=== PATIENT | female | born 1950 | race Hispanic/Latino ===

== ENCOUNTER 2016-07-15 14:35 | Outpatient (CLI) | payer BC ==
--- NOTE | 2016-07-15 15:32 | Mammography Report ---
BILATERAL MAMMOGRAM: FINDINGS: The breasts are almost entirely fat (<25% glandular). No mass, distortion, suspicious calcification, or skin change is seen. CAD was utilized. IMPRESSION: Negative mammogram. There is no mammographic evidence of malignancy. RECOMMENDATION: Follow-up per ACS guidelines. BI-RADS CATEGORY: 1 = Negative ACR BI-RADS MAMMOGRAPHIC CODES: 0 = Needs additional imaging evaluation; 1 = Negative; 2 = Benign; 3 = Probably benign; 4 = Suspicious; 5 = Malignant; 6 = Known biopsy-proven malignancy COMMENT: 1. Dense breast tissue, i.e., adenosis, fibrocystic changes, etc., may obscure an underlying neoplasm. 2. Approximately 10% of cancers are not detected with mammography. 3. A negative mammography report should not delay biopsy if a clinically suspicious mass is present. COMMENT: Patient follow-up letters are generated in [employer].
== END 2016-07-15 14:36 | disposition home or self-care (01) ==
LOC: SPVWC 14:35
PROVIDERS: ATTEND Internal Medicine
DX: Z12.31 Encounter for screening mammogram for malignant neoplasm of breast (principal)
CPT/HCPCS: 77067; G0202

== ENCOUNTER 2016-09-02 09:10 | Outpatient (CLI) | payer BC ==
--- NOTE | 2016-09-02 10:06 | Ultrasound Report ---
Limited abdominal ultrasound: Elevated liver enzymes. Images of the liver raise suspicion of mild increased echogenicity. No focal findings. Normal liver contour and size. The gallbladder has been surgically removed. The diameter of the CBD is 5 mm. Images of the pancreas are unremarkable as are images of the right kidney which measures 10.9 cm in length. The transverse diameter of the proximal abdominal aorta is 2.1 cm and the mid aorta is 1.5 cm. Impressions: The findings raise the possibility of mild steatosis of the liver.
== END 2016-09-02 09:11 | disposition home or self-care (01) ==
LOC: SPVWC 09:10
PROVIDERS: ATTEND Internal Medicine
DX: R94.5 Abnormal results of liver function studies (principal); Z90.49 Acquired absence of other specified parts of digestive tract
CPT/HCPCS: 76705

== ENCOUNTER 2016-10-20 08:24 | Outpatient (CLI) | payer BC ==
--- NOTE | 2016-10-20 10:27 | Ultrasound Report ---
Limited abdominal ultrasound: Elevated liver enzyme studies. Transabdominal imaging demonstrates a somewhat coarse liver pattern with no focal findings. The liver has a normal contour and size. The body and head of the pancreas are visualized and appear unremarkable. The tail was not well visualized. The gallbladder has been surgically removed. The CBD diameter is 5 mm. The right renal length is 10.9 cm and the kidney is echogenically unremarkable. The transverse diameter of the proximal abdominal aorta is 2 cm and the mid aorta is 1.8 cm. Impressions: The heterogeneous liver may be related to fatty infiltration. No focal findings.
== END 2016-10-20 08:25 | disposition home or self-care (01) ==
LOC: SPVWC 08:24
PROVIDERS: ATTEND Internal Medicine Rheumatology
DX: R94.5 Abnormal results of liver function studies (principal); Z90.49 Acquired absence of other specified parts of digestive tract
CPT/HCPCS: 76705

== ENCOUNTER 2017-05-18 08:30 | Inpatient (IN) | payer BC, MEDICARE ==
--- NOTE | 2017-05-18 09:07 | Anesthesia Consultation ---
Anesthesia Consult and Med Hx Date of service: 05/18/17 - Airway Anesthetic Teeth Evaluation: Good ROM Head & Neck: Adequate Mental/Hyoid Distance: Adequate Mallampati Class: Class I Intubation Access Assessment: Good - Pulmonary Exam CTA: Yes - Cardiac Exam Cardiac Exam: RRR - Pre-Operative Health Status ASA Pre-Surgery Classification: ASA2 Proposed Anesthetic Plan: General - Pulmonary Hx Smoking: Yes (STOPPED X 35 YRS , 2PPD X 10-15 YRS) Hx Asthma: Yes (INHALERS PRN) Hx Sleep Apnea: No (ADAM PRE SCREEN HIGH RISK.) - Cardiovascular System Hx Hypertension: Yes (X 8 MONTHS) - Hematic Hx Anemia: Yes (NOT RECENT) - Other Systems Hx Alcohol Use: (2-3 DRINKS PER DAY) Hx Cancer: No
[2017-05-18] MEDS ORDERED: TRANSDERM-SCOP TD NR (10:00)
[2017-05-18] MEDS ORDERED: REGLAN IV NR (10:00)
[2017-05-18] MEDS ORDERED: ZOFRAN IV NR (10:00)
[2017-05-18] MEDS ORDERED: VERSED IV NR (10:00)
[2017-05-18] MEDS ORDERED: DECADRON IV ONE (11:00)
[2017-05-25] MEDS ORDERED: ANCEF/STERILE WATER 2 GM/20 ML IV NR (00:01)
[2017-05-25] MEDS ORDERED: NACL ONE ×2 (06:53→12:23)
[2017-05-25] MEDS ORDERED: TRANEXAMIC ACID ONE (06:53)
[2017-05-25] MEDS ORDERED: MARCAINE 0.25% INFILTRATI ONE ×2 (06:53→13:10)
[2017-05-25] MEDS ORDERED: TORADOL ONE (06:53)
[2017-05-25] MEDS ORDERED: XYLOCAINE 1%/ EPI 1:100,000 INFILTRATI ONE (06:54)
[2017-05-25] MEDS ORDERED: POLYMYXIN B SULFATE IV ONE ×2 (06:54→12:45)
[2017-05-25] MEDS ORDERED: MORPHINE ONE (06:54)
[2017-05-25] MEDS ORDERED: CLORPACTIN WCS-90 IR ONE ×3 (06:55→12:15)
[2017-05-25] MEDS ORDERED: BACITRACIN ONE ×2 (06:55→10:05)
[2017-05-25] MEDS: NACL 0.9% 1000 ML 1,000 ML IV SCH ×2 (09:15→11:17)
[2017-05-25] MEDS ORDERED: DECADRON IV ONE (10:00)
[2017-05-25] MEDS ORDERED: MARCAINE 0.5% 30 ML INFILTRATI ONE (10:02)
[2017-05-25] MEDS ORDERED: VERSED ONE (10:02)
[2017-05-25] MEDS ORDERED: PEPCID IV NR (10:04)
[2017-05-25] MEDS: TRANSDERM-SCOP TD NR ×2 (10:05→11:18)
[2017-05-25] MEDS ORDERED: DIPRIVAN 10 MG/ML IV ONE (10:24)
[2017-05-25] MEDS ORDERED: XYLOCAINE MPF 2% ONE (10:26)
[2017-05-25] MEDS ORDERED: DILAUDID ONE (10:26)
[2017-05-25] MEDS ORDERED: TRANEXAMIC ACID IV ONE (10:50)
[2017-05-25] MEDS ORDERED: NACL 0.9% IV ONE (11:00)
[2017-05-25] MEDS ORDERED: NACL 0.9% 250ML 250 ML ONE ×2 (11:18→12:03)
[2017-05-25] MEDS ORDERED: VANCOMYCIN VIAL ONE (12:01)
[2017-05-25] MEDS ORDERED: SUBLIMAZE ONE (12:09)
[2017-05-25] MEDS ORDERED: NACL 0.9% 500 ML 500 ML ONE (12:31)
[2017-05-25] MEDS ORDERED: BACITRACIN IR ONE (12:45)
[2017-05-25] MEDS ORDERED: NACL INFILTRATI ONE (13:10)
[2017-05-25] MEDS ORDERED: TORADOL PO ONE (13:10)
[2017-05-25] MEDS ORDERED: MORPHINE IM ONE (13:10)
[2017-05-25] MEDS ORDERED: PHENERGAN PR PRN (13:57)
[2017-05-25] MEDS ORDERED: ZOFRAN IV PRN (13:57)
[2017-05-25] MEDS ORDERED: SODIUM CHLORIDE FLUSH SYRINGE 10 ML IV NR (14:00)
[2017-05-25] MEDS ORDERED: NON-FORMULARY (Cetirizine Hcl [Zyrtec] 10 MG) PO PRN (14:01)
[2017-05-25] MEDS ORDERED: NON-FORMULARY (Albuterol Sulfate [Proair Respiclick] 90 MCG) IH PRN (14:01)
[2017-05-25] MEDS ORDERED: FLONASE NS PRN (14:01)
[2017-05-25] MEDS ORDERED: NON-FORMULARY (Budesonide/Formoterol Fumarate [Symbicort 160-4.5 Mcg Inhaler] 2 PUFF) INHALATION PRN (14:01)
[2017-05-25] MEDS ORDERED: ROBINUL ONE (14:26)
[2017-05-25] MEDS ORDERED: NACL 0.9% 1000 ML 1,000 ML ONE (14:26)
[2017-05-25] MEDS ORDERED: ZOFRAN ONE (14:26)
[2017-05-25] MEDS ORDERED: XYLOCAINE CARDIAC IV ONE (14:26)
[2017-05-25] MEDS ORDERED: NEO SYNEPHRINE/NS Syringe(OR USE) IV ONE (14:30)
[2017-05-25] MEDS ORDERED: CLARITIN PO PRN (14:34)
[2017-05-25] MEDS ORDERED: VITAMIN B-12 IM SCH (16:00)
--- NOTE | 2017-05-25 19:53 | XRay Report ---
FINAL REPORT PROCEDURE: XR KNEE 1-2V LT TECHNIQUE: Left knee radiographs, AP and lateral views. HISTORY: postop COMPARISON: No prior studies are available for comparison. FINDINGS: Total knee prosthesis in place. Prosthetic components are tightly applied to bone. No fractures are seen. Fluid and gas visualized in the suprapatellar bursa consistent with recent surgery. There is artifact from bandages overlying the knee. IMPRESSION: Postoperative changes as described above related to total knee prosthesis placement. Prosthetic components appear tightly applied to bone.
[2017-05-25] MEDS: PULMICORT IH SCH (20:58)
[2017-05-25] MEDS: BROVANA NEBU IH SCH (20:58)
[2017-05-25] MEDS ORDERED: ceFAZolin 2 GM in NACL 0.9% 20 ML IV SCH (22:00)
[2017-05-25] MEDS ORDERED: ceFAZolin 2 GM in NACL 0.9% 100 ML IV SCH (22:00)
[2017-05-25] MEDS: ASPIRIN PO SCH (22:15)
[2017-05-25] MEDS: MORPHINE IV PRN (22:15)
[2017-05-25] MEDS: BACTRIM DS PO SCH (22:15)
[2017-05-25] MEDS: ceFAZolin 2 GM in NACL 0.9% 20 ML IV SCH (22:20)
[2017-05-25] MEDS: TORADOL IV SCH (22:40)
[2017-05-25] MEDS ORDERED: VANCOMYCIN/0.45 NS 1 GM/250 ML 1 GM/250 ML BAG IV ONE (23:00)
[2017-05-25] MEDS ORDERED: VANCOMYCIN/NS 1 GM/250 ML 1 GM/250 ML BAG IV SCH (23:00)
[2017-05-26] MEDS: AZULFIDINE PO SCH ×3 (00:39→21:41)
--- NOTE | 2017-05-26 00:47 | Operative Report ---
SURGEON: Javi Hernandez MD VENDING MACHINE COLLECTOR: Abigail operative tech and ____ operative tech. PREOPERATIVE DIAGNOSIS: Severe advanced osteoarthritis, left knee joint. POSTOPERATIVE DIAGNOSIS: Severe osteoarthritis of the left knee joint, tibiofemoral joint. PROCEDURES PERFORMED: 1. Left total knee replacement. 2. Partial synovectomy, left knee joint. COMPLICATIONS: None. BLOOD LOSS: Minimal. BRIEF HISTORY: The patient has painful arthritic left knee, failed conservative treatment, opted to undergo surgical intervention. Risk, benefit discussed, informed consent obtained, brought to the hospital for the above procedure. DETAILS OF THE OPERATIVE REPORT: The patient was taken to the operating, smooth and general endotracheal anesthesia, all the bony prominences were carefully padded, placed supine on the operating table. Thigh tourniquet was placed. Left knee, left lower extremity prepped and draped in sterile fashion. Leg elevated, tourniquet inflated to 300 mmHg. The patient was given 2 grams Ancef half an hour before the procedure along with a gram of TXA 10 minutes before the incision. Longitudinal incision made over anterior aspect of the knee, exposing extensive mechanism. Arthrotomy was performed. Patella displaced laterally. Gross finding of severe advanced degenerative arthritis of the tibiofemoral joint. Subperiosteal dissection was continued around the proximal medial tibia and necessary soft tissue release was performed to correct the fixed angular deformity. Drill was used to open the femoral canal. The subperiosteal dissection was continued around the proximal medial tibia. Necessary soft tissue release was performed to correct the fixed angular deformity. The patient had my knee protocol in patient's specific instrumentation and block made based on the CT scan and that block was placed on the femur and had a great fit. This was fixed. Hence, on the distal femur, an oblique pin was used to get a better purchase. Once this was done, the distal cut was done in about 5 degree valgus angle as planned preoperatively based on the patient's CT scan. A good cut was achieved about 10 mm on the medial side. The drills were made through the patient's specific block to darryl her external rotation, which is in line with the epicondyles. The external rotation pins were placed. The block was removed. Following that, the 4-in-1 cutting block was placed on the femoral side. Anterior and posterior cuts were made including the chamfer cuts. Extramedullary tibial cutting guide was then placed, proximal tibia resected perpendicular long axis of tibia, minimum bone resection was performed about 6-7 on the proximal lateral side. Following this, there was a laminar biosolids management technician was placed between femur and tibia. Arthritic ACL and PCL ligaments were removed. Medial and lateral meniscectomy performed. Gap balancing was achieved by doing appropriate release of the medial side. Significant osteophytes and the posterior aspect of the femur with tight capsule was released as well. Once the osteophytes and the posterior capsule were released and the ligament of the medial side was released, we achieved a good balancing on the flexion and extension and medially and laterally with the spacer block. With a 10 spacer we had great stability, full extension, full flexion, stable throughout range of motion. Stable equal flexion, extension, and medial laterally gaps on flexion and extension as well. Tibia was then prepared by tibial reaming and broach system by placing the tibial tray in proper position, proper external rotation. Femur was then placed and trialing was then performed with 10 poly, we had great stability, full extension, full flexion, stable throughout range of motion. Patella was fairly pristine. Full thickness articular cartilage of the patella was preserved other than mild minimal osteophytes. We decided to leave the patella ____ resurfaces as they were fairly well preserved cartilage. Patella tracked central throughout range of motion. Femur was then prepared for the trochlear cut through the Medacta cutting block. Trochlear recess cut was then performed. Trialing was done, we had great stability, full range of motion. Patella tracked central, stable throughout range of motion, full extension, full flexion. Trial components were removed, thoroughly washed the knee area with antibiotic-soaked normal saline, followed by normal saline. Thorough washing was performed in the knee with antibiotic-soaked normal saline, bacitracin, polymyxin, also washing was performed with 500 mL bag of Clorpactin irrigation with normal saline. Then we had thorough washing with regular, normal saline about a liter bag. The bone surfaces were cleaned and dried, cementing of the knee was performed. Tibia was cemented first set in proper position, proper external rotation, impacted in place. Excess cement was removed. Femur was then cemented in proper position, proper external rotation and packed in place. Excess cement was removed. Trial liner was then placed once the cement was hardened, relative tibial articulating surface was implanted and a knee moved through range of motion and found to be extremely stable. Pain cocktail injection was injected into the periarticular tissue around the knee. Tourniquet released. Hemostasis achieved with electrocautery. No active bleeder as such. Arthrotomy was closed with #2 Quill sutures, subcutaneous tissue was closed with 0 and 2-0 Vicryl interrupted sutures. Skin was closed with Monocryl. Aquacel dressing done. Asael wrap applied. The patient tolerated the procedure well, shifted to recovery room in stable condition. Sponge and needle count was correct. IMPLANTS USED: Medacta sphere primary knee femoral component size 3 ____ type sphere, tibial tray size 3, left side fixed, asymmetric baseplate cemented, poly ____ size 3, 10 mm high-flex type. JOB# [id number] JOSE/KASHIF
[2017-05-26] MEDS: PERCOCET 5/325 PO PRN ×2 (02:20→14:14)
[2017-05-26] MEDS: TORADOL IV SCH ×3 (04:11→21:39)
[2017-05-26 05:23] LABS: Hematocrit 32.4 % (30.3-42.9); Hemoglobin 11.3 gm/dl (10.1-14.3)
[2017-05-26 05:31] LABS: INR 1.03 (0.87-1.13)
[2017-05-26 05:40] LABS: BUN/Creatinine Ratio 14; Blood Urea Nitrogen 10 mg/dL (7-17); Calcium 7.7 mg/dL (8.4-10.2); Hemolysis Index 3
[2017-05-26] MEDS: ceFAZolin 2 GM in NACL 0.9% 20 ML IV SCH ×2 (05:54→17:39)
[2017-05-26] MEDS: NACL 0.9% 1000 ML 1,000 ML IV SCH (05:59)
[2017-05-26] MEDS ORDERED: PULMICORT IH ONE ×2 (08:03→20:24)
[2017-05-26] MEDS: MORPHINE IV PRN ×2 (09:42→17:38)
[2017-05-26] MEDS: OYSCO D 500 MG-200 UNIT PO SCH (09:45)
[2017-05-26] MEDS: NEURONTIN PO SCH ×3 (09:47→21:43)
[2017-05-26] MEDS: ASPIRIN PO SCH ×2 (09:48→21:43)
[2017-05-26] MEDS: BACTRIM DS PO SCH ×2 (09:48→21:41)
--- NOTE | 2017-05-26 09:53 | Consultation ---
History of Present Illness - Reason for Consult Consult date: 05/26/17 Managment of hypertension hypertension in a pt with left TKA Requesting physician: HUNTER MARTINEZ - History of Present Illness Patient is 66-year-old lady with a history or hypertension, asthma, rheumatoid arthritis with osteopenia arthritis of left knee status post left total knee arthroplasty with synovectomy on 05/25/2017 for recheck consult was requested by orthopedic surgeon Dr. Flaherty to assist in monitoring the patient's hypertension. Patient denies any headache chest pain shortness of breath. Multiple compress, dyspnea. Had had a controlled high blood pressure for many years. Denies any wheezing or cough. Also has rheumatoid arthritis controlled on prednisone. Complaints of postoperative left knee pain. Past History Past Medical History: hypertension, other (rheumatoid arthritis, asthma.) Past Surgical History: total knee replacement Social history: denies: smoking, alcohol abuse Medications and Allergies Allergies Allergy/AdvReac Type Severity Reaction Status Date / Time No Known Allergies Allergy Verified 05/16/17 15:53 Home Medications Medication Instructions Recorded Confirmed Last Taken Type Prednisone 5 mg PO DAILY 05/16/17 05/25/17 05/25/17 History Albuterol Sulfate [Proair 90 mcg IH PRN PRN 05/18/17 05/25/17 05/25/17 History Respiclick] Budesonide/Formoterol Fumarate 2 puff INHALATION PRN PRN 05/18/17 05/25/1705/25 History [Symbicort 160-4.5 Mcg Inhaler] Calcium 600-D3 Plus Caplet 1 tab PO DAILY 05/18/17 05/25/17 05/24/17 History Cetirizine HCl [Zyrtec] 10 mg PO PRN PRN 05/18/17 05/18/17 Unknown History Cyanocobalamin (Vitamin B-12) 1 dose IM QWEEK 05/18/17 05/25/17 05/18/17 History [Vitamin B12] Fluticasone [Flonase] 1 spray NS PRN PRN 05/18/17 05/25/17 05/23/17 History Omeprazole 20 mg PO DAILY 05/18/17 05/25/17 05/24/17 History Sulfamethoxazole/Trimethoprim 1 each PO BID 05/18/17 05/25/17 05/24/17 History [Bactrim DS TAB] Triamterene-Hctz 37.5-25 mg Cp 1 tab PO DAILY 05/18/17 05/25/17 05/25/17 History sulfaSALAzine [Azulfidine] 1,500 mg PO BID 05/18/17 05/25/17 05/25/17 History Active Meds: Active Medications Arformoterol Tartrate (Brovana Nebu) 15 mcg IH Q12HRT [facility] Last Admin: 05/25/17 20:58 Dose: Not Given Aspirin (Aspirin) 325 mg PO BID [facility] Last Admin: 05/25/17 22:15 Dose: 325 mg Budesonide (Pulmicort) 1 mg IH Q12HRT [facility] Last Admin: 05/25/17 20:58 Dose: Not Given Calcium/Vitamin D (Oysco D 500 Mg-200 Unit) 1 each PO DAILY [facility] Celecoxib (Celebrex) 200 mg PO BID [facility] Cyanocobalamin (Vitamin B-12) 1,000 mcg IM Th [facility] Fluticasone Propionate (Flonase) 50 mcg NS PRN PRN PRN Reason: Allergy Symptoms Gabapentin (Neurontin) 300 mg PO Q8HR [facility] Sodium Chloride (Nacl 0.9% 1000 Ml) 1,000 mls @ 75 mls/hr IV DIRECT [facility] Last Admin: 05/26/17 05:59 Dose: 75 mls/hr Cefazolin Sodium 2 gm/ Sodium (Chloride) 20 mls @ 2 mls/min IV Q8H [facility] Stop: 05/26/17 14:09 Last Admin: 05/26/17 05:54 Dose: 2 mls/min Ketorolac Tromethamine (Toradol) 15 mg IV Q6H [facility] Stop: 05/26/17 16:01 Last Admin: 05/26/17 04:11 Dose: 15 mg Loratadine (Claritin) 10 mg PO PRN PRN PRN Reason: Allergy Symptoms Miscellaneous Medication (Albuterol Sulfate [Proair Respiclick]) 90 mcg IH PRN PRN PRN Reason: Shortness Of Breath Morphine Sulfate (Morphine) 4 mg IV Q6H PRN PRN Reason: Pain , Severe (7-10) Last Admin: 05/26/17 09:42 Dose: 4 mg Ondansetron HCl (Zofran) 4 mg IV Q8H PRN PRN Reason: Nausea And Vomiting Oxycodone/Acetaminophen (Percocet 5/325) 1 tab PO Q4H PRN PRN Reason: Pain, Moderate (4-6) Last Admin: 05/26/17 02:20 Dose: 1 tab Pantoprazole Sodium (Protonix) 20 mg PO QDAY [facility] Prednisone (Deltasone) 5 mg PO DAILY [facility] Promethazine HCl (Phenergan) [address] Q6H PRN PRN Reason: Nausea And Vomiting Sodium Chloride (Sodium Chloride Flush Syringe 10 Ml) 10 ml IV PRN NR Stop: 05/28/17 13:59 Sulfasalazine (Azulfidine) 1,500 mg PO BID [facility] Last Admin: 05/26/17 00:39 Dose: Not Given Triamterene/HCTZ (Maxzide-25) 1 each PO QAM [facility] Trimethoprim/Sulfamethoxazole (Bactrim Ds) 1 each PO BID [facility] Last Admin: 05/25/17 22:15 Dose: 1 each Review of Systems Constitutional: no weight gain, no fever, no anorexia, no fatigue Ears, nose, mouth and throat: no deferred, no ear pain, no ear discharge, no decreased hearing Cardiovascular: no chest pain, no orthopnea, no palpitations Respiratory: no cough, no cough with sputum, no excessive sputum Gastrointestinal: no abdominal pain, no nausea, no vomiting, no diarrhea Musculoskeletal: no neck stiffness, no neck pain, no shooting arm pain Integumentary: no rash, no pruritis, no redness Neurological: no head injury, no transient paralysis, no paralysis, no weakness Psychiatric: no anxiety, no memory loss, no change in sleep habits Endocrine: no cold intolerance, no heat intolerance, no polyphagia, no excessive thirst, no polydipsia Hematologic/Lymphatic: no easy bruising Allergic/Immunologic: no urticaria Exam - Constitutional Vitals: Temp Pulse Resp BP Pulse Ox 97.9 F 83 18 108/41 94 05/26/17 07:19 05/26/17 07:19 05/26/17 07:19 05/26/17 07:19 05/26/17 07:19 General appearance: Present: no acute distress, well-nourished - EENT Eyes: Present: PERRL - Neck Neck: Present: supple, normal ROM - Respiratory Respiratory effort: normal Respiratory: bilateral: CTA - Cardiovascular Heart Sounds: Present: S1 & S2. Absent: rub, click - Extremities Extremities: pulses symmetrical, No edema Peripheral Pulses: within normal limits - Abdominal General gastrointestinal: Present: soft, non-tender, non-distended, normal bowel sounds - Integumentary Integumentary: Present: clear, warm, dry - Musculoskeletal Musculoskeletal: other (SCDs on the left knee. With limited range of motion secondary to postoperative pain) - Psychiatric Psychiatric: appropriate mood/affect, intact judgment & insight - Neurologic Neurologic: CNII-XII intact, moves all extremities Results - Labs CBC & Chem 7: 05/26/17 04:38 05/26/17 04:38 Labs: Abnormal lab results 05/26/17 Range/Units 04:38 Sodium 136 L (137-145) mmol/L Potassium 3.5 L (3.6-5.0) mmol/L Calcium 7.7 L (8.4-10.2) mg/dL Assessment and Plan - Patient Problems (1) Hypertension Onset Date: 05/26/17 Current Visit: Yes Status: Acute Plan to address problem: Low-sodium diet, continue with Maxzide. Hold for systolic blood pressure less than 90. Patient had an episode of hypotension yesterday. (2) Asthma Onset Date: 05/26/17 Current Visit: Yes Status: Acute Plan to address problem: DuoNeb, Pulmicort, and IV Solu-Medrol (3) Rheumatoid arthritis Onset Date: 05/26/17 Current Visit: Yes Status: Acute Plan to address problem: Patient on prednisone. Continue descent. (4) DVT prophylaxis Onset Date: 05/26/17 Current Visit: Yes Status: Acute Plan to address problem: Lovenox 40 mg subcutaneous
[2017-05-26] MEDS: MAXZIDE-25 PO SCH (09:58)
[2017-05-26] MEDS ORDERED: [UNRECOGNIZED DRUG - OTHER] PO SCH (10:00)
[2017-05-26] MEDS ORDERED: CALCIUM PO SCH (10:00)
[2017-05-26] MEDS ORDERED: [UNRECOGNIZED DRUG - OTHER] PO SCH (10:00)
[2017-05-26] MEDS ORDERED: PROTONIX PO SCH (10:00)
[2017-05-26] MEDS ORDERED: NON-FORMULARY (Omeprazole [Omeprazole] 20 MG) PO SCH (10:00)
[2017-05-26] MEDS ORDERED: TRIAMTERENE HCTZ PO SCH (10:00)
[2017-05-26] MEDS ORDERED: DELTASONE PO SCH (10:00)
[2017-05-26] MEDS: BROVANA NEBU IH SCH ×2 (10:54→20:28)
[2017-05-26] MEDS: PULMICORT IH SCH (11:04)
[2017-05-26] MEDS: PEPCID IV SCH ×2 (14:14→21:41)
--- NOTE | 2017-05-26 17:22 | Progress Note ---
Subjective Date of service: 05/26/17 Interval history: pod1, s/p tka doing well, pain under control with meds. calf soft NT dRESSING DRY DC planning once clear by medicine and PT Knee exer taught to her. Recommended to not keep pillow under the knee. pillow under ankle DC plan once clear by medicine and PT WITH tka DC instruction sheet and DVT prophylaxsis Objective Vital signs: Vital Signs - 12hr 05/26/17 05/26/17 05/26/17 05:23 07:19 10:00 Temperature 98.1 F 97.9 F Pulse Rate 77 76 Respiratory 20 18 Rate Blood Pressure 135/40 Blood Pressure 108/41 [Left] O2 Sat by Pulse 93 94 95 Oximetry 05/26/17 05/26/17 05/26/17 10:12 12:00 12:01 Temperature 98.3 F Pulse Rate 96 H 100 H Respiratory 20 20 Rate Blood Pressure 113/46 Blood Pressure [Left] O2 Sat by Pulse 93 93 Oximetry 05/26/17 16:24 Temperature Pulse Rate 90 Respiratory Rate Blood Pressure Blood Pressure [Left] O2 Sat by Pulse 95 Oximetry - Labs CBC & BMP: 05/26/17 04:38 05/26/17 04:38 Labs: Abnormal lab results 05/26/17 Range/Units 04:38 Sodium 136 L (137-145) mmol/L Potassium 3.5 L (3.6-5.0) mmol/L Calcium 7.7 L (8.4-10.2) mg/dL
[2017-05-26] MEDS: LOVENOX SUB-Q SCH (21:43)
[2017-05-27] MEDS: PERCOCET 5/325 PO PRN ×4 (04:24→20:29)
[2017-05-27] MEDS: NEURONTIN PO SCH ×3 (06:00→21:59)
[2017-05-27] MEDS: BROVANA NEBU IH SCH ×2 (08:59→23:55)
[2017-05-27] MEDS: PULMICORT IH SCH ×2 (08:59→23:55)
[2017-05-27] MEDS: AZULFIDINE PO SCH ×2 (09:57→21:58)
[2017-05-27] MEDS: OYSCO D 500 MG-200 UNIT PO SCH (09:57)
[2017-05-27] MEDS: MAXZIDE-25 PO SCH (09:57)
[2017-05-27] MEDS: ASPIRIN PO SCH ×2 (09:58→21:59)
[2017-05-27] MEDS: PEPCID IV SCH ×2 (09:58→22:00)
[2017-05-27] MEDS: BACTRIM DS PO SCH ×2 (10:06→22:11)
--- NOTE | 2017-05-27 15:37 | Progress Note ---
Assessment and Plan - Patient Problems (1) Asthma Onset Date: 05/26/17 Current Visit: Yes Status: Acute Plan to address problem: Stable respiratory status (2) Hypertension Current Visit: Yes Status: Acute Plan to address problem: Good control on current meds (3) Rheumatoid arthritis Onset Date: 05/26/17 Current Visit: Yes Status: Acute Subjective Date of service: 05/27/17 Interval history: Covering Dr Simpson Patient feeling better , denied chest pain and no shortness of breath .Pain contro adequate Objective - Constitutional Vitals: Vital Signs - 12hr 05/27/17 05/27/17 05/27/17 04:24 05:24 08:00 Temperature 98.1 F Pulse Rate 86 Respiratory 17 17 18 Rate Blood Pressure 135/57 [Left] O2 Sat by Pulse 93 Oximetry 05/27/17 05/27/17 10:00 12:00 Temperature 98.9 F Pulse Rate 96 H Respiratory 20 Rate Blood Pressure 116/46 [Left] O2 Sat by Pulse 93 96 Oximetry General appearance: Present: no acute distress - EENT Eyes: EOM intact ENT: hearing intact Ears: bilateral: normal - Neck Neck: supple, normal ROM - Respiratory Respiratory effort: normal Respiratory: bilateral: CTA - Cardiovascular Rhythm: regular Extremities: no ischemia - Gastrointestinal General gastrointestinal: Present: soft, non-tender, non-distended - Integumentary Integumentary: warm, dry - Musculoskeletal Musculoskeletal: strength equal bilaterally - Neurologic Neurologic: CNII-XII intact, moves all extremities, gait normal - Psychiatric Psychiatric: appropriate mood/affect - Labs CBC & Chem 7: 05/26/17 04:38 05/26/17 04:38
--- NOTE | 2017-05-27 19:16 | XRay Report ---
FINAL REPORT PROCEDURE: XR CHEST 1V AP TECHNIQUE: Chest radiograph anteroposterior view. CPT 28379 HISTORY: low pulse ox COMPARISON: No prior studies are available for comparison. FINDINGS: Heart: Normal. Mediastinum/Vessels: Normal. Lungs/Pleural space: Normal. Bony thorax: No acute osseous abnormality. Life support devices: None. IMPRESSION: No acute cardiopulmonary abnormality.
[2017-05-27] MEDS: LOVENOX SUB-Q SCH (22:00)
[2017-05-27] MEDS: MORPHINE IV PRN (22:12)
[2017-05-28] MEDS: NEURONTIN PO SCH ×2 (06:35→13:42)
[2017-05-28] MEDS: BACTRIM DS PO SCH (10:21)
[2017-05-28] MEDS: AZULFIDINE PO SCH (10:22)
[2017-05-28] MEDS: OYSCO D 500 MG-200 UNIT PO SCH (10:23)
[2017-05-28] MEDS: ASPIRIN PO SCH (10:23)
[2017-05-28] MEDS: MAXZIDE-25 PO SCH (10:23)
[2017-05-28] MEDS: PERCOCET 5/325 PO PRN ×2 (10:23→14:50)
[2017-05-28] MEDS: PEPCID IV SCH (10:24)
--- NOTE | 2017-05-28 15:57 | Progress Note ---
Assessment and Plan - Patient Problems (1) Asthma Onset Date: 05/26/17 Current Visit: Yes Status: Acute Plan to address problem: Stable respiratory status (2) Hypertension Current Visit: Yes Status: Acute Plan to address problem: Good control on current meds Stable postoperatively Patient already discharged for Ortopedic point of view . Okay to discharge , patient stated that her O2 saturation usually in the low 90, s. Ok to discharge .Patiennt to followup with her primary physician . (3) Rheumatoid arthritis Onset Date: 05/26/17 Current Visit: Yes Status: Acute Plan to address problem: Clinically stable Subjective Date of service: 05/28/17 Principal diagnosis: Post hip replacement surgery , hypertension . Objective - Constitutional Vitals: Vital Signs - 12hr 05/28/17 05/28/17 05/28/17 05:35 07:41 11:07 Temperature 97.7 F 97.1 F L 98.2 F Pulse Rate 83 84 89 Respiratory 20 20 20 Rate Blood Pressure 128/50 133/50 117/63 O2 Sat by Pulse 94 92 91 Oximetry General appearance: Present: no acute distress - EENT Eyes: PERRL ENT: hearing intact - Neck Neck: supple, normal ROM - Respiratory Respiratory effort: normal Respiratory: bilateral: CTA - Cardiovascular Rhythm: regular Heart Sounds: Present: S1 & S2 Extremities: no ischemia - Gastrointestinal General gastrointestinal: Present: soft, non-tender, normal bowel sounds - Integumentary Integumentary: warm, dry - Musculoskeletal Musculoskeletal: strength equal bilaterally - Neurologic Neurologic: CNII-XII intact - Psychiatric Psychiatric: appropriate mood/affect - Labs CBC & Chem 7: 05/26/17 04:38 05/26/17 04:38 Labs: Abnormal lab results 05/27/17 Range/Units 18:58 POC ABG pH 7.473 H (7.35-7.45) POC ABG pO2 60 L (80-105)
[2017-05-28] MEDS: BROVANA NEBU IH SCH (17:46)
[2017-05-28] MEDS: PULMICORT IH SCH (17:47)
[2017-05-28 18:32] VITALS: BP 143/51
[2017-06-01] MEDS ORDERED: CYANOCOBALAMIN IM SCH (10:00)
== END 2017-05-28 17:45 | disposition home health service (06) | DRG 470 ==
LOC: INTOOBSV 05-25 06:59 → 3A 05-25 06:59 → 3B-SURG 05-25 14:41 → OBSVTOIN 05-26 16:16
PROVIDERS: ADMIT Orthopaedic Surgery; ATTEND Orthopaedic Surgery
PROC: 0SRD0J9 Replacement of Left Knee Joint with Synthetic Substitute, Cemented, Open Approach (ICD-10-PCS; principal; 2017-05-25)
PROC: 0SBD0ZZ Excision of Left Knee Joint, Open Approach (ICD-10-PCS; 2017-05-25)
PROC: 4A033R1 Measurement of Arterial Saturation, Peripheral, Percutaneous Approach (ICD-10-PCS; 2017-05-27)
DX: M17.12 Unilateral primary osteoarthritis, left knee (principal); F17.210 Nicotine dependence, cigarettes, uncomplicated; J45.909 Unspecified asthma, uncomplicated; I10 Essential (primary) hypertension; M06.9 Rheumatoid arthritis, unspecified
CPT/HCPCS: 36415; 36600; 64447; 71045; 80048; 82803; 85014; 85018; 85610; 86850; 86900; 86901; 87116; 88305; 94640; 94760; C1713; C1776; G0378; G0379; J0690; J1100; J1170; J1650; J1885; J2001; J2250; J2270; J2370; J2405; J2704; J2920; J3010; J3370; J3420; J7030; J7040; J7050; J7512

== ENCOUNTER 2017-11-23 14:50 | Outpatient (CLI) | payer BC, MEDICARE ==
--- NOTE | 2017-11-24 08:48 | Mammography Report ---
BILATERAL MAMMOGRAM: FINDINGS: The breasts are almost entirely fat (<25% glandular). No mass, distortion, suspicious calcification, or skin change is seen. No significant change when compared to prior examination in July 2016. CAD was utilized. IMPRESSION: Negative mammogram. There is no mammographic evidence of malignancy. RECOMMENDATION: Follow-up per ACS guidelines. BI-RADS CATEGORY: 1 = Negative ACR BI-RADS MAMMOGRAPHIC CODES: 0 = Needs additional imaging evaluation; 1 = Negative; 2 = Benign; 3 = Probably benign; 4 = Suspicious; 5 = Malignant; 6 = Known biopsy-proven malignancy COMMENT: 1. Dense breast tissue, i.e., adenosis, fibrocystic changes, etc., may obscure an underlying neoplasm. 2. Approximately 10% of cancers are not detected with mammography. 3. A negative mammography report should not delay biopsy if a clinically suspicious mass is present. COMMENT: Patient follow-up letters are generated in [employer].
== END 2017-11-23 14:51 | disposition home or self-care (01) ==
LOC: SPVWC 14:50
PROVIDERS: ATTEND Internal Medicine
DX: Z12.31 Encounter for screening mammogram for malignant neoplasm of breast (principal); I10 Essential (primary) hypertension; J45.909 Unspecified asthma, uncomplicated; M19.90 Unspecified osteoarthritis, unspecified site; Z90.49 Acquired absence of other specified parts of digestive tract; Z90.710 Acquired absence of both cervix and uterus; Z72.89 Other problems related to lifestyle; Z86.2 Personal history of diseases of the blood and blood-forming organs and certain disorders involving the immune mechanism; Z87.891 Personal history of nicotine dependence; Z79.899 Other long term (current) drug therapy
CPT/HCPCS: 77067